=== PATIENT | female | born 1980 | race Caucasian/White ===

== ENCOUNTER 2017-11-13 19:05 | Emergency (ER) | payer OTHER, MEDICAID ==
[~2017-11-13] VITALS: Ht 160 cm; Wt 66.2 kg
[~2017-11-13 19:05] MED LIST: CYMBALTA20 MG PO; PREDNISONE 20 M20 M1 PO; PROAIR HFA8.5 GM INH; TESSALON PERLE100 MG PO; ZPAK PO
[2017-11-13 19:55] LABS: ABSOLUTE BASOPHILS 0.1 thou/uL (0.0-0.2); ABSOLUTE EOSINOPHILS 0.2 thou/uL (0.0-0.7); ABSOLUTE LYMPHOCYTES 1.6 thou/uL (0.8-5.3); ABSOLUTE MONOCYTES 0.5 thou/uL (0.0-1.2); ABSOLUTE NEUTROPHILS 3.8 thou/uL (1.6-8.1); BASOPHILS 1.3 %; EOSINOPHILS 3.1 %; HEMATOCRIT 35.7 % (37.0-47.0); HEMOGLOBIN 12.1 gm/dL (12.0-15.0); LYMPHOCYTES 25.4 %; MCH 29.5 pg (26.0-34.0); MCHC 33.9 g/dL (28.0-37.0); MONOCYTES 8.6 %; MPV 7.9 fl. (7.2-11.1); NUCLEATED RBCS 0 /100WBC; PLATELET COUNT* 317 thou/uL (150-400); POLYS 61.6 %; RDW-CV 12.6 % (10.5-14.5); WBC 6.2 thou/uL (4.0-11.0)
[2017-11-13 19:57] LABS: URINE BILIRUBIN NEGATIVE (Negative); URINE BLOOD NEGATIVE (Negative); URINE CLARITY CLEAR; URINE COLOR STRAW; URINE GLUCOSE-RANDOM NEGATIVE (Negative); URINE KETONES NEGATIVE (Negative); URINE LEUKOCYTES-REFLEX NEGATIVE (Negative); URINE NITRITE-REFLEX NEGATIVE (Negative); URINE PROTEIN NEGATIVE (Negative); URINE SPECIFIC GRAVITY <= 1.005 (1.005-1.030); URINE UROBILINOGEN 0.2 E.U./dl (0.2-1.0)
[2017-11-13 20:01] LABS: ANION GAP 7 mmol/L (7-16); BUN 10 mg/dL (7-18); CALCIUM 8.2 mg/dL (8.5-10.1); CHLORIDE 105 mmol/L (98-107); CO2 29 mmol/L (21-32); GLUCOSE 104 mg/dL (70-99); POTASSIUM 3.3 mmol/L (3.5-5.1); SODIUM 141 mmol/L (136-145)
[2017-11-13 20:09] LABS: ALBUMIN 3.3 g/dL (3.4-5.0); ALKALINE PHOSPHATASE 80 U/L (46-116); SGOT 12 U/L (15-37); SGPT 15 U/L (30-65); TOTAL BILIRUBIN 0.6 mg/dL (<0.1-1.0); TOTAL PROTEIN 7.1 g/dL (6.4-8.2); TROPONIN-I LEVEL <0.06 ng/mL (<0.06)
[2017-11-13 20:14] LABS: AMP/METHAMP Negative (Negative); BARBITURATES Negative (Negative); BENZODIAZEPINES Negative (Negative); COCAINE Negative (Negative); METHADONE Negative (Negative); OPIATES Negative (Negative); PCP Negative (Negative); THC Negative (Negative)
[2017-11-13] MEDS ORDERED: PREVACID15 MG PO (21:52)
[2017-11-13] MEDS ORDERED: CARAFATE 1 GM TA1 GM PO (21:52)
[2017-11-13 22:10] VITALS: BP 118/66
--- NOTE | 2017-11-14 16:24 | EKG ---
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
== END 2017-11-13 22:11 | disposition home or self-care (01) ==
LOC: M.ERS 19:05
PROVIDERS: Personal Emergency Response Attendant
DX: R07.89 Other chest pain (principal); Z90.710 Acquired absence of both cervix and uterus

== ENCOUNTER 2018-01-26 08:49 | Emergency (ER) | payer OTHER, MEDICAID ==
[~2018-01-26] VITALS: Ht 160 cm; Wt 65.8 kg
[~2018-01-26 08:49] MED LIST changes: +CARAFATE 1 GM TA1 GM PO; +PREVACID15 MG PO
[2018-01-26] MEDS ORDERED: HYDROCODON-ACE1 EAC7 PO (09:45)
[2018-01-26] MEDS ORDERED: KEFLEX500 M1 PO (09:45)
[2018-01-26 10:09] VITALS: BP 104/66
== END 2018-01-26 10:10 | disposition home or self-care (01) ==
LOC: M.ERS 08:49
DX: S91.012A Laceration without foreign body, left ankle, initial encounter (principal); W22.8XXA Striking against or struck by other objects, initial encounter; Y93.89 Activity, other specified; Y92.89 Other specified places as the place of occurrence of the external cause; Y99.8 Other external cause status

== ENCOUNTER → 2018-09-19 | Outpatient (CLI) | payer OTHER, MEDICAID ==
[~2018-09-19] MED LIST changes: +HYDROCODON-ACE1 EAC7 PO; +KEFLEX500 M1 PO
== END ==
LOC: M.ULTRA 08:37
DX: R10.2 Pelvic and perineal pain (principal); R10.9 Unspecified abdominal pain; Z90.710 Acquired absence of both cervix and uterus

== ENCOUNTER → 2019-08-30 | Outpatient (CLI) | payer OTHER, MEDICAID | LOC: M.ULTRA 08:52 | DX: N93.9 Abnormal uterine and vaginal bleeding, unspecified (principal); R10.9 Unspecified abdominal pain; Z90.710 Acquired absence of both cervix and uterus ==

== ENCOUNTER → 2020-01-14 | Outpatient (CLI) | payer OTHER | LOC: M.RAD 10:22 | DX: R07.89 Other chest pain (principal) ==

== ENCOUNTER 2020-02-29 10:05 | Emergency (ER) | payer OTHER ==
[~2020-02-29] VITALS: Ht 160 cm; Wt 65.8 kg
[2020-02-29] MEDS ORDERED: SINGULAIR 10 MG10 M1 PO (10:12)
[2020-02-29 10:41] LABS: ABSOLUTE BASOPHILS 0.1 thou/uL (0.0-0.2); ABSOLUTE EOSINOPHILS 0.1 thou/uL (0.0-0.7); ABSOLUTE LYMPHOCYTES 1.2 thou/uL (0.8-5.3); ABSOLUTE MONOCYTES 0.4 thou/uL (0.0-1.2); ABSOLUTE NEUTROPHILS 6.1 thou/uL (1.6-8.1); EOSINOPHILS 1.1 %; HEMATOCRIT 38.8 % (37.0-47.0); HEMOGLOBIN 13.5 gm/dL (12.0-15.0); LYMPHOCYTES 15.6 %; MCH 29.8 pg (26.0-34.0); MCHC 34.8 g/dL (28.0-37.0); MCV 85.7 fL (80.0-100.0); MONOCYTES 5.5 %; MPV 7.9 fl. (7.2-11.1); NUCLEATED RBCS 0 /100WBC; PLATELET COUNT* 327 thou/uL (150-400); POLYS 76.8 %; RBC 4.52 mil/uL (4.20-5.00); RDW-CV 12.5 % (10.5-14.5)
[2020-02-29 10:49] LABS: CALCIUM 8.1 mg/dL (8.5-10.1); CREATININE 0.9 mg/dL (0.6-1.3); POTASSIUM 3.6 mmol/L (3.5-5.1)
[2020-02-29 10:51] LABS: PROTIME 9.9 Seconds (9.20-11.50)
[2020-02-29 10:53] LABS: ALBUMIN 3.3 g/dL (3.4-5.0); TOTAL BILIRUBIN 0.8 mg/dL (<0.1-1.0); TOTAL PROTEIN 7.2 g/dL (6.4-8.2)
[2020-02-29] MEDS ORDERED: CARAFATE 1 GM TA1 GM PO (12:04)
[2020-02-29] MEDS ORDERED: PREDNISONE 20 M20 M1 PO (12:04)
[2020-02-29] MEDS ORDERED: OMEPRAZOLE 20 M20 M1 PO (12:04)
[2020-02-29 13:29] VITALS: BP 119/87
--- NOTE | 2020-03-01 15:33 | EKG ---
[place] [address] ELECTROCARDIOGRAM REPORT Name: YURIY BECKER Room: [facility]#: [id number] Admission: 02/29/20 Attend Phys: Discharge: 02/29/20 Date of : 80 Date of Service: 02/29/20 1008 Report #: [id number] THIS REPORT FOR: //name// [facility] ED Test Date: 2020-02-29 Test Time: 10:08:09 Pat Name: YURIY BECKER Department: Room: Gender: F [employer]r: : 1980 Requested By: Marta Varma Order Number: [id number] MD: Rob Pham Measurements Intervals [place] Rate: 79 P: 34 WV: 137 QRS: 16 QRSD: 83 T: 8 QT: 362 QTc: 416 Interpretive Statements Sinus rhythm Baseline wander in lead(s) V5,V6 Compared to ECG 11/13/2017 19:17:10 No significant changes Electronically Signed On 03-01-2020 15:31:37 CDT by Rob Pham [email or web address] <ELECTRONICALLY SIGNED> By: Ryne Pham MD, [facility] 03/01/20 1531 1008 1008 FFide Pham MD, [facility] /EPI
== END 2020-02-29 13:29 | disposition home or self-care (01) ==
LOC: M.ERS 10:05
PROVIDERS: Personal Emergency Response Attendant
DX: R07.89 Other chest pain (principal); Z90.710 Acquired absence of both cervix and uterus; Z98.890 Other specified postprocedural states

== ENCOUNTER → 2021-09-27 | Outpatient (CLI) | payer OTHER ==
[~2021-09-27] MED LIST changes: +OMEPRAZOLE 20 M20 M1 PO; +SINGULAIR 10 MG10 M1 PO
== END ==
LOC: M.RAD 17:02
PROVIDERS: ATTEND Family Medicine
DX: M77.32 Calcaneal spur, left foot (principal)